=== PATIENT | female | born 1935 | race Caucasian/White ===

== ENCOUNTER → 2016-03-30 | Outpatient (CLI) | payer MEDICARE, BC | LOC: VAS 17:18 | DX: Z01.810 Encounter for preprocedural cardiovascular examination (principal); R93.8 Abnormal findings on diagnostic imaging of other specified body structures; I34.0 Nonrheumatic mitral (valve) insufficiency ==

== ENCOUNTER → 2016-12-08 | Outpatient (CLI) | payer MEDICARE, BC | LOC: RAD 09:53 | DX: I65.23 Occlusion and stenosis of bilateral carotid arteries (principal) ==

== ENCOUNTER 2017-09-30 14:30 | Outpatient (RCR) | payer MEDICARE, BC | END 2017-09-30 15:00 | disposition home or self-care (01) | LOC: PT 14:30 | DX: M51.36 Other intervertebral disc degeneration, lumbar region (principal); M48.061 Spinal stenosis, lumbar region without neurogenic claudication; M41.9 Scoliosis, unspecified | CPT/HCPCS: G8978-GP; G8979-GP ==

== ENCOUNTER → 2018-05-18 | Outpatient (CLI) | payer MEDICARE, BC ==
[2018-05-18 11:21] LABS: EOS # 0.1 (0.04-0.40); EOS % 1.8 % (1.0-5.0); HEMATOCRIT 45.6 % (37.0-47.0); HEMOGLOBIN 15.2 g/dL (12.5-16.0); LYMPH# 1.6 (1.50-4.00); MEAN CELL VOLUME 94 fl (78-100); MEAN CORPUSCULAR HEMOGLOBIN 31 pg (27-31); MEAN CORPUSCULAR HGB CONC 33 g/dL (33-37); MEAN PLATELET VOLUME 9.5 fl (7.4-10.4); MONO # 0.8 (0.20-0.80); NEU # 4.4 (1.40-6.50); PLATELET COUNT 169 K/mm3 (130-400); RED BLOOD COUNT 4.86 M/mm3 (4.10-5.30); RED CELL DISTRIBUTION WIDTH 12.3 % (11.5-14.5); WHITE BLOOD COUNT 7.1 K/mm3 (4.8-10.8)
[2018-05-18 11:30] LABS: ALBUMIN 3.9 g/dL (3.5-5.0); CALCIUM 8.9 mg/dL (8.4-10.2); POTASSIUM 3.6 mmol/L (3.6-5.0); TOTAL BILIRUBIN 0.6 mg/dL (0.2-1.3); TOTAL PROTEIN 7.1 g/dL (6.3-8.2)
[2018-05-18 13:09] LABS: PH-URINE 5.5 (5.0 - 8.0); URINE APPEARANCE HAZY; URINE COLOR YELLOW; URINE PROTEIN(semi-quant) TRACE mg/dL (NEGATIVE)
[2018-05-18 13:10] LABS: URINE BILIRUBIN NEGATIVE (NEGATIVE); URINE BLOOD TRACE (NEGATIVE); URINE GLUCOSE NEGATIVE (NEGATIVE); URINE KETONE NEGATIVE (NEGATIVE); URINE LEUKOCYTE ESTERASE TRACE (NEGATIVE); URINE MUCUS PRESENT (NOT PRESENT); URINE NITRATE NEGATIVE (NEGATIVE); URINE UROBILINOGEN NORMAL (NORMAL)
== END ==
LOC: LAB 10:48
PROVIDERS: Physician Assistant Medical
DX: R11.0 Nausea (principal); I10 Essential (primary) hypertension

== ENCOUNTER → 2019-10-02 | Outpatient (CLI) | payer MEDICARE, BC | LOC: RAD 10:49 | DX: R60.0 Localized edema (principal) ==

== ENCOUNTER 2020-02-07 11:15 | Outpatient (RCR) | payer MEDICARE, BC | END 2020-02-07 11:45 | disposition home or self-care (01) | LOC: PT 11:15 | DX: Z96.651 Presence of right artificial knee joint (principal) ==

== ENCOUNTER 2020-09-04 10:51 | Outpatient (RCR) | payer MEDICARE, BC | END 2020-12-03 | LOC: PT | DX: M48.061 Spinal stenosis, lumbar region without neurogenic claudication (principal) ==

== ENCOUNTER → 2023-05-14 | Outpatient (CLI) | payer MEDICARE, BC | LOC: RAD 11:56 | DX: M25.552 Pain in left hip (principal); M79.672 Pain in left foot ==

== ENCOUNTER → 2023-11-17 | Outpatient (CLI) | payer MEDICARE, BC | LOC: RAD 14:45 | DX: M25.512 Pain in left shoulder (principal) ==

== ENCOUNTER → 2024-05-01 | Outpatient (CLI) | payer MEDICARE, BC | LOC: RAD 16:27 | DX: M19.072 Primary osteoarthritis, left ankle and foot (principal) ==